=== PATIENT | male | born 1965 | race Two or more races ===

== ENCOUNTER 2018-08-03 22:10 | Emergency (ER) | payer OTHER ==
[~2018-08-03] VITALS: Ht 165.1 cm; Wt 71.2 kg
[2018-08-03 22:27] VITALS: Ht 165.1 cm; Wt 71.2 kg
[2018-08-03 23:45] VITALS: BP 134/80
== END 2018-08-03 23:45 | disposition home or self-care (01) ==
LOC: ED 22:10
DX: K64.9 Unspecified hemorrhoids (principal)

== ENCOUNTER 2018-10-09 06:33 | Day surgery (SDC) | payer OTHER ==
[~2018-10-09] VITALS: Ht 170.2 cm; Wt 72.6 kg
[2018-10-09 07:00] VITALS: BP 126/76
[2018-10-09 11:27] VITALS: BP 128/77
== END 2018-10-09 10:50 | disposition home or self-care (01) ==
LOC: DS 06:33 → GI 07:30 → OR 07:30 → DS 10:50
DX: K62.89 Other specified diseases of anus and rectum (principal); K64.8 Other hemorrhoids; E78.00 Pure hypercholesterolemia, unspecified
CPT/HCPCS: 45378; J1200; J1610; J2250; J2310; J3010; J3490